=== PATIENT | female | born 1990 | race Caucasian/White ===

== ENCOUNTER 2018-11-30 09:21 | Outpatient (CLI) | payer SELFPAY ==
[~2018-11-30] VITALS: Ht 160 cm; Wt 55.9 kg
[2018-11-30 10:10] VITALS: BP 102/59
[2018-11-30] MEDS ORDERED: PREN1TAB60 PO (10:23)
[2018-11-30] MEDS ORDERED: LEVO25TA4 PO (10:23)
[2018-11-30 10:45] LABS: MICROSCOPIC NOT IND
== END 2018-11-30 11:35 | disposition home or self-care (01) ==
LOC: LDOP 09:21
PROVIDERS: ATTEND Obstetrics & Gynecology
DX: O26.893 Other specified pregnancy related conditions, third trimester (principal); R10.9 Unspecified abdominal pain; Z3A.30 30 weeks gestation of pregnancy
CPT/HCPCS: 59025; 81003; 87086; 99201; G0463